=== PATIENT | female | born 1970 ===

== ENCOUNTER 2022-01-23 07:03 | Day surgery (SDC) | payer OTHER ==
[~2022-01-23] VITALS: Ht 160 cm; Wt 61.2 kg
[2022-01-23 07:30] VITALS: BP 110/78
[2022-01-23 07:47] LABS: ALBUMIN 4.7 g/dL (3.2-5.0); ALKALINE PHOSPHATASE 71 u/l (38-126); ANION GAP 14 (6-22 (CALC)); BILIRUBIN, TOTAL 0.4 mg/dL (0.0-1.4); BUN 16 mg/dL (7-17); BUN/CREATININE RATIO 23 (12-20 (CALC)); CARBON DIOXIDE 24 mmol/l (22-30); CHLORIDE 103 mmol/l (95-108); CREATININE 0.7 mg/dL (0.5-1.0); GFR FOR AFR.AMER. > 60 ML/MIN (>=60 (CALC)); GFR OTHER RACES > 60 ML/MIN (>=60 (CALC)); POTASSIUM 3.9 mmol/l (3.5-5.1); SGOT/AST 27 u/l (14-36); SODIUM 137 mmol/l (137-146); TOTAL PROTEIN 7.7 g/dL (6.3-8.2)
[2022-01-23 07:50] LABS: HEMATOCRIT 36.9 % (37.0-47.0); HEMOGLOBIN 12.6 g/dl (12.0-16.0); IMMATURE GRANULOCYTES 0.2 % (0.0-5.0); MEAN CELL VOLUME 91.8 fL CALC (80.0-100.0); MEAN CORPUSCULAR HGB 31.3 pG CALC (26.0-32.0); MEAN CORPUSCULAR HGB CONC 34.1 g/dL CAL (32.0-36.0); NEUT# 2.34 thou/uL (2.00-7.15); RED BLOOD COUNT 4.02 mill/uL (4.20-5.60); RED CELL DISTRI WIDTH 13.4 % (11.5-15.5)
[2022-01-23 09:30] VITALS: BP 88/64
[2022-01-23] MEDS ORDERED: NALTREXONE50 MG PO (13:51)
[2022-01-23] MEDS ORDERED: CLONIDINE0.1 MG PO (13:52)
[2022-01-23 17:38] VITALS: BP 105/70
[2022-01-23 22:41] VITALS: BP 103/61
[2022-01-24 04:03] VITALS: BP 95/58
[2022-01-24 06:06] LABS: HEMATOCRIT 32.4 % (37.0-47.0); IMMATURE GRANULOCYTES 0.2 % (0.0-5.0); MEAN CORPUSCULAR HGB 31.3 pG CALC (26.0-32.0); NEUT# 4.37 thou/uL (2.00-7.15); RED BLOOD COUNT 3.52 mill/uL (4.20-5.60); RED CELL DISTRI WIDTH 13.5 % (11.5-15.5)
[2022-01-24 06:33] LABS: ALKALINE PHOSPHATASE 55 u/l (38-126); BILIRUBIN, TOTAL 0.4 mg/dL (0.0-1.4); BUN 14 mg/dL (7-17); BUN/CREATININE RATIO 23 (12-20 (CALC)); CARBON DIOXIDE 23 mmol/l (22-30); CREATININE 0.6 mg/dL (0.5-1.0); GFR FOR AFR.AMER. > 60 ML/MIN (>=60 (CALC)); GFR OTHER RACES > 60 ML/MIN (>=60 (CALC)); MAGNESIUM 2.6 mg/dL (1.6-2.3); POTASSIUM 4.3 mmol/l (3.5-5.1); SGOT/AST 27 u/l (14-36); SODIUM 140 mmol/l (137-146)
[2022-01-24 06:35] LABS: ANION GAP 12 (6-22 (CALC)); CHLORIDE 109 mmol/l (95-108)
[2022-01-24 06:37] LABS: TOTAL PROTEIN 6.1 g/dL (6.3-8.2)
[2022-01-24 06:38] LABS: ALBUMIN 3.7 g/dL (3.2-5.0)
[2022-01-24 08:16] VITALS: BP 76/56
[2022-01-24 19:43] VITALS: BP 103/61
== END 2022-01-25 11:20 | disposition home or self-care (01) | DRG 897 ==
LOC: EDBD 07:03 → ANR 07:03 → MS2 07:28 → ANR 01-25 11:20
PROVIDERS: ATTEND Anesthesiology
DX: F11.20 Opioid dependence, uncomplicated (principal)
CPT/HCPCS: J2354